=== PATIENT | female | born 1980 | race Caucasian/White ===

== ENCOUNTER 2016-09-29 16:19 | Inpatient (IN) | payer BC ==
[~2016-09-29] VITALS: Ht 165.1 cm; Wt 77.8 kg
[2016-09-29] MEDS ORDERED: SODIUM CHLORIDE FLUSH 3 ML SYR IV ONE (16:40)
[2016-09-29] MEDS ORDERED: KETOROLAC 30 MG/ML (TORADOL) 1 ML VIAL IV ONE (16:40)
[2016-09-29] MEDS ORDERED: ONDANSETRON 2 MG/ML (Z0FRAN) 2 ML VIAL IV ONE (16:40)
[2016-09-29] MEDS ORDERED: fentaNYL 100 MCG/2 ML VIAL IV ONE (16:40)
[2016-09-29] MEDS ORDERED: SODIUM CHLORIDE FLUSH 10 ML SYR IV PRN (16:40)
[2016-09-29] MEDS ORDERED: LORazepam 2 MG/ML (ATIVAN) 1 ML VIAL IV ONE (16:50)
[2016-09-29 16:54] LABS: BASOPHILS % (AUTO) 1 % (0-2); EOSINOPHILS # (AUTO) 0.2 10^3uL; EOSINOPHILS % (AUTO) 3 % (0-4); LYMPHOCYTES # (AUTO) 2.5 X10^3; MEAN CORPUSCULAR HEMOGLOBIN 24.8 PG (26.0-34.0); MEAN CORPUSCULAR HGB CONC 33.6 g/dL (31.0-37.0); MEAN CORPUSCULAR VOLUME 74 FL (80-100); MEAN PLATELET VOLUME 10.3 FL (6.0-9.5); MONOCYTES # (AUTO) 0.5 X10^3; MONOCYTES % (AUTO) 6 % (3-11); NEUTROPHILS # (AUTO) 5.1 X10^3; NEUTROPHILS % (AUTO) 61 % (51-67); PLATELET COUNT 358 10^3uL (150-450); WHITE BLOOD COUNT 8.36 10^3uL (4.0-11.0)
[2016-09-29 17:03] LABS: ALBUMIN 4.5 g/dL (3.4-5.0); CALCULATED IONIZED CALCIUM 4.1 mg/dL (3.8-4.6); TOTAL PROTEIN 8.2 g/dL (6.4-8.5)
--- NOTE | 2016-09-29 17:11 | NUR ---
pt refusing anxiety medication at this time.
[2016-09-29 17:39] LABS: BILIRUBIN,URINE Negative (Negative); CLARITY,URINE Clear; COLOR,URINE Yellow; GLUCOSE, URINE (UA) Negative (Negative); LEUKOCYTE ESTERASE ,URINE Negative (Negative); UROBILINOGEN,URINE 0.2 mg/dL (0.2-1.0)
[2016-09-29 19:44] VITALS: BP 138/79
--- NOTE | 2016-09-29 19:44 | NUR ---
1942: Pt. arrives to the Med Surg unit via wheel chair; accompanied by ER/RN and . Pt. is alert and orientated; resp are even and unlabored on room air; rates pain level at '6'; pain located at right side; describes as 'burning'. Pt. last had something to eat at 1400 today; drink at 1600. Pt. transfers from wheel chair to bed easily; admission process continues.
--- NOTE | 2016-09-29 20:12 | NUR ---
Pt. resting quietly on left side; denies nausea; pain in lower right side currently; and [id number] at bedside.
--- NOTE | 2016-09-29 20:14 | NUR ---
Dr. Sethi here to see pt.
[2016-09-29 20:23] VITALS: BP 138/79
[2016-09-29] MEDS ORDERED: ONDANSETRON 4 MG (ZOFRAN) ORAL DISSOLVE TAB SL PRN (21:00)
[2016-09-29] MEDS ORDERED: morphine PCA 30 MG/30 ML VIAL IV PRN (21:00)
[2016-09-29] MEDS: LACTATED RINGERS 1,000 ML IV SCH (21:36)
[2016-09-29 21:40] VITALS: BP 140/78
--- NOTE | 2016-09-29 21:40 | NUR ---
Morphine COMBO WELDER operational; providing pain relief to pt. Pt. ambulates to and fro restroom with stand by assist for equipment. plans on spending the night; will provide cot. Call light and H2O within reach. Pt. reminded of NPO status after midnight.
--- NOTE | 2016-09-29 23:30 | NUR ---
Pt. resting quietly; end tidal CO2 operational; no current requests.
[2016-09-30] VITALS (15 sets, daily range): BP systolic 121–145; BP diastolic 69–96
--- NOTE | 2016-09-30 02:00 | NUR ---
Pt. resting quietly on her left side; resp are even and unlabored on room air; appears to be in no distress
[2016-09-30 06:01] LABS: BASOPHILS % (AUTO) 0 % (0-2); EOSINOPHILS # (AUTO) 0.3 10^3uL; EOSINOPHILS % (AUTO) 4 % (0-4); MEAN CORPUSCULAR HGB CONC 33.5 g/dL (31.0-37.0); MEAN PLATELET VOLUME 10.3 FL (6.0-9.5); MONOCYTES # (AUTO) 0.6 X10^3; MONOCYTES % (AUTO) 8 % (3-11); NEUTROPHILS # (AUTO) 4.2 X10^3; NEUTROPHILS % (AUTO) 60 % (51-67); PLATELET COUNT 298 10^3uL (150-450); WHITE BLOOD COUNT 7.05 10^3uL (4.0-11.0)
[2016-09-30 06:06] LABS: MEAN CORPUSCULAR HEMOGLOBIN 25.1 PG (26.0-34.0); MEAN CORPUSCULAR VOLUME 75 FL (80-100)
--- NOTE | 2016-09-30 06:39 | NUR ---
Pt. up to ambulate to and fro bathroom; assist with equipment only. Pt. 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 Pt. denies nausea; remains NPO; at bedside on cot; call light within reach.
[2016-09-30 06:50] LABS: ALBUMIN 3.3 g/dL (3.4-5.0); ANION GAP 9.1 MEQ/L (3-15); TOTAL PROTEIN 6.4 g/dL (6.4-8.5)
[2016-09-30] MEDS: LACTATED RINGERS 1,000 ML IV SCH ×2 (07:54→22:52)
[2016-09-30] MEDS ORDERED: NS FLUSH 3 ML PRN IV (08:00)
[2016-09-30] MEDS ORDERED: LACTATED RINGERS 1,000 ML IV SCH (08:40)
[2016-09-30] MEDS ORDERED: SODIUM CHLORIDE FLUSH 3 ML SYR IV PRN (08:40)
[2016-09-30] MEDS: NS FLUSH 3 ML DAILY IV SCH (09:00)
--- NOTE | 2016-09-30 10:30 | NUR ---
Patient took her shower with hibiclens soap.
--- NOTE | 2016-09-30 10:45 | NUR ---
Tylenol 1000 mg. given per order with one sip of water.
[2016-09-30] MEDS ORDERED: ONDANSETRON 2 MG/ML (Z0FRAN) 2 ML VIAL ONE (10:54)
[2016-09-30] MEDS ORDERED: ROCURONIUM 50 MG/5 ML (ZEMURON) VIAL IV ONE ×2 (10:54→13:16)
[2016-09-30] MEDS ORDERED: PROPOFOL 20 ML IV ONE (10:54)
[2016-09-30] MEDS ORDERED: ALFENTANIL 500 MCG/ML (ALFENTA) 5 ML AMP IV ONE (10:54)
[2016-09-30] MEDS ORDERED: ACETAMINOPHEN 500 MG TAB (TYLENOL) PO SCH (11:00)
--- NOTE | 2016-09-30 11:20 | NUR ---
LR with gravity tubing in place. Underwear and jewelry off. Patient has voided and is awaiting OR.
--- NOTE | 2016-09-30 11:35 | NUR ---
Patient went to surgery with OR staff.
[2016-09-30] MEDS ORDERED: SCOPOLAMINE 1.5 MG (TRANSDERM-SCOP) PATCH TD ONE (11:45)
[2016-09-30] MEDS ORDERED: diphenhydrAMINE 50 MG/ML INJ (BENADRYL) ONE (11:47)
[2016-09-30] MEDS ORDERED: METOCLOPRAMIDE 10 MG/2 ML (REGLAN) VIAL ONE (11:47)
[2016-09-30] MEDS ORDERED: BUPIVACAINE/EPINEPHRINE 0.25%-1:200,000 (MARCAINE) 30 ML VIAL INJ ONE (11:56)
[2016-09-30] MEDS ORDERED: KETOROLAC 60 MG/2 ML (TORADOL) VIAL IM ONE (12:25)
[2016-09-30] MEDS ORDERED: GLYCOPYRROLATE 0.2 MG/ML (ROBINUL) 1 ML VIAL ONE (12:26)
--- NOTE | 2016-09-30 12:34 | NUR ---
NUTRITION ASSESSMENT Level 1 Patient: Anabel Looney Age/Sex: 36/F Date Screened: 09-30-16 Weight: 171.1#/77.8 kg Height: 65 inches Primary Diagnosis: abdominal pain/cholelithiasis Diet Order: NPO Relevant labs: glucose 90 Food allergies: N Nutrition Assessment Criteria Age over 80: N Body Mass Index (BMI) under 19: N Admission Screening Indicates Risk? N Moderate/High Risk Diagnosis: 3 points TPN or PPN: N NPO or clear liquid diet: Yes Serum Glucose <70 or >180: N Hgb A1c >6.7: N/A Total: 3 points Risk Screen: __ Patient at low nutritional risk based on available data; reevaluate in 5-7 days _X_ Patient at moderate nutritional risk based on available data; reevaluate in 3-5 days __ Patient at high nutritional risk; complete Nutrition Assessment within 48 hours of admission. Comments: Plan for cholecystectomy today. Pt. has had significant weight gain over the past year; weighed 161# in 2015, and 139# in November 2015. Will reassess as documented above.
[2016-09-30] MEDS ORDERED: PIPERACILLIN/TAZOBACTAM 3.375 GM in SODIUM CHLORIDE 50 ML IV ONE (12:40)
[2016-09-30] MEDS ORDERED: GLUCAGON EMERGENCY 1 MG/KIT ONE (12:44)
[2016-09-30] MEDS ORDERED: ACETAMINOPHEN 325 MG TAB (TYLENOL) PO PRN (13:40)
[2016-09-30] MEDS ORDERED: morphine INJ 2 MG/ML 1 ML SYRINGE IV PRN (13:40)
--- NOTE | 2016-09-30 14:30 | NUR ---
Back from OR. Abdominal incisions are glued and intact. Patient reports pain rated at 7/10. Drowsy but wakes easily.
--- NOTE | 2016-09-30 14:46 | NUR ---
MED REC COMPLETE--current list obtained from medication list provided by patient's PCP, Retail pharmacy, and external med history application.
--- NOTE | 2016-09-30 15:15 | NUR ---
Patient rests quietly after IV morphine dose. Continues to be drowsy but wakes easily to questions from staff. Resp. rate= 20.
--- NOTE | 2016-09-30 16:00 | NUR ---
Sleeps quietly. V.S. stable.
--- NOTE | 2016-09-30 17:30 | NUR ---
Up to the bathroom with stand by assist. Able to void without difficulty.
--- NOTE | 2016-09-30 18:00 | NUR ---
Able to take juice without nausea. Gave oral pain medication for incisional pain rated 7/10.
[2016-09-30] MEDS: oxyCODONE IMMEDIATE RELEASE 5 MG (OXYIR) TAB PO PRN (18:30)
--- NOTE | 2016-09-30 18:30 | NUR ---
V.S. remain stable. Wakes and speaks to family for a short time.
--- NOTE | 2016-09-30 22:52 | NUR ---
Pt tolerating liquids well. IV SL at this time.
[2016-10-01 00:16] VITALS: BP 115/72
[2016-10-01] MEDS: oxyCODONE IMMEDIATE RELEASE 5 MG (OXYIR) TAB PO PRN ×4 (03:00→15:14)
[2016-10-01] MEDS: LACTATED RINGERS 1,000 ML IV SCH ×2 (03:00→13:00)
[2016-10-01 04:06] VITALS: BP 142/71
--- NOTE | 2016-10-01 05:53 | NUR ---
Pt rests well throughout the night. Minimal c/o post op abd pain. Controlled well with OxyIR. Resp even and non labored on RA. SL intact.
[2016-10-01 07:52] LABS: MEAN CORPUSCULAR HGB CONC 32.8 g/dL (31.0-37.0); MEAN PLATELET VOLUME 10.2 FL (6.0-9.5); PLATELET COUNT 303 10^3uL (150-450); WHITE BLOOD COUNT 9.97 10^3uL (4.0-11.0)
[2016-10-01 07:58] VITALS: BP 132/95
[2016-10-01 08:02] LABS: ALBUMIN 3.4 g/dL (3.4-5.0); ANION GAP 9.7 MEQ/L (3-15); MEAN CORPUSCULAR HEMOGLOBIN 24.8 PG (26.0-34.0); MEAN CORPUSCULAR VOLUME 76 FL (80-100); TOTAL PROTEIN 6.4 g/dL (6.4-8.5)
[2016-10-01 08:05] LABS: BAND NEUTROPHILS % 2 % (0-6); EOSINOPHILS % 1 % (0-4); LYMPHOCYTES # 0.6 #; MONOCYTES # 0.5 #; MONOCYTES % 5 % (3-11); SEGMENTED NEUTROPHILS % 86 % (51-67); TOTAL CELLS COUNTED 100
[2016-10-01 08:06] LABS: ANISOCYTOSIS SLIGHT; MICROCYTOSIS SLIGHT; RBC MORPH SEE REFERENCE (NORMAL)
[2016-10-01] MEDS: NS FLUSH 3 ML DAILY IV SCH (09:00)
[2016-10-01 11:28] VITALS: BP 124/75
--- NOTE | 2016-10-01 14:00 | NUR ---
Patient reports adequate pain control from Oxy IR. She was able to tolerate a regular diet without nausea or increased pain. Afebrile today.
[2016-10-01 16:43] VITALS: BP 131/85
--- NOTE | 2016-10-01 17:00 | NUR ---
Gave the patient discharge instructions and printed script for OxyIR. Educated patient on the signs and symptoms of infection. Patient demonstrated verbal understanding.
--- NOTE | 2016-10-01 17:05 | NUR ---
Patient dismissed ambulatory accompanied by this nurse.
== END 2016-10-01 17:05 | disposition home or self-care (01) | DRG 419 ==
LOC: ED 16:21 → INTOOBSV 19:09 → UNDOADMOB 19:09 → MED/SURG 19:09 → OBSVTOIN 09-30 17:03 → INTOOBSV 09-30 23:22 → OBSVTOIN 09-30 23:22 → UNDODISIN 10-01 17:05
PROVIDERS: ADMIT Surgery; ATTEND Surgery
PROC: 0FT44ZZ Resection of Gallbladder, Percutaneous Endoscopic Approach (ICD-10-PCS; principal; 2016-09-30)
DX: K80.66 Calculus of gallbladder and bile duct with acute and chronic cholecystitis without obstruction (principal); F32.9 Major depressive disorder, single episode, unspecified; F41.1 Generalized anxiety disorder
CPT/HCPCS: 36415; 74176; 74300; 76705; 80053; 81003; 82150; 83690; 85025; 85610; 94770; 96361; 96374; 96375; 99284; 99285